=== PATIENT | male | born 1940 | race Caucasian/White ===

== ENCOUNTER → 2018-05-13 | Outpatient (CLI) | payer MEDICARE, BC | END | disposition home or self-care (01) | LOC: CVU 06:46 | PROVIDERS: ATTEND Physician Assistant | DX: I70.293 Other atherosclerosis of native arteries of extremities, bilateral legs (principal); I77.819 Aortic ectasia, unspecified site; M79.652 Pain in left thigh; M79.651 Pain in right thigh | CPT/HCPCS: 93925; 93978 ==

== ENCOUNTER 2018-08-09 08:57 | Day surgery (SDC) | payer MEDICARE, BC ==
[~2018-08-09] VITALS: Ht 177.8 cm; Wt 85.6 kg
[~2018-08-09 08:57] MED LIST: LIDOCAINE-MPF 1%, 5ML ONE
[2018-08-09 09:35] VITALS: BP 126/78
[2018-08-09] MEDS ORDERED: D5%-0.45% NACL 1,000 ML IV SCH (09:43)
[2018-08-09] MEDS ORDERED: FENTANYL PF 100 MCG/2ML ONE (10:38)
[2018-08-09] MEDS ORDERED: NALOXONE 1 MG/ML, 2ML ONE (10:39)
[2018-08-09] MEDS ORDERED: NITROGLYCERIN 5 MG/ML, 10ML ONE (10:39)
[2018-08-09] MEDS ORDERED: PROTAMINE SULFATE 10 MG/ML, 25ML ONE (10:39)
[2018-08-09] MEDS ORDERED: HEPARIN 1,000 UNITS/ML, 10ML ONE (10:39)
[2018-08-09] MEDS ORDERED: FLUMAZENIL 0.1 MG/1 ML, 5ML ONE (10:39)
[2018-08-09] MEDS ORDERED: MIDAZOLAM 1 MG/ML, 5ML ONE (10:39)
[2018-08-09] MEDS ORDERED: VISIPAQUE 270 MG/ML, 150ML BOTTLE ONE (12:12)
[2018-08-09] MEDS ORDERED: SODIUM CHLORIDE 0.9% 1,000 ML IV SCH (12:16)
[2018-08-09] MEDS ORDERED: ACETAMINOPHEN 650 MG/20.3 ML UDC PO PRN (12:30)
== END 2018-08-09 16:05 | disposition home or self-care (01) ==
LOC: OUT 08:57
PROVIDERS: ATTEND Surgery
DX: I70.222 Atherosclerosis of native arteries of extremities with rest pain, left leg (principal); F41.9 Anxiety disorder, unspecified; K21.9 Gastro-esophageal reflux disease without esophagitis; Z98.890 Other specified postprocedural states
CPT/HCPCS: 37221; 75630; 76937; 99156; 99157; C1725; C1751; C1760; C1769; C1876; C1894; J1644; J2250; J3010; Q9966; J2720; J2310

== ENCOUNTER → 2019-04-26 | Outpatient (CLI) | payer MEDICARE, BC ==
[~2019-04-26] MED LIST changes: -LIDOCAINE-MPF 1%, 5ML ONE; +REGADENOSON 0.4 MG/5 ML SYRINGE ONE
== END | disposition home or self-care (01) ==
LOC: CFH 07:54
PROVIDERS: ATTEND Family Medicine
DX: R06.02 Shortness of breath (principal); R09.82 Postnasal drip; R61 Generalized hyperhidrosis
CPT/HCPCS: 78452; 93017; A9502; J2785